=== PATIENT | female | born 1975 | race Native Hawaiian/Other Pacific Islander ===

== ENCOUNTER 2018-11-08 18:01 | Emergency (ER) | payer BC ==
[~2018-11-08] VITALS: Ht 160 cm; Wt 86.2 kg
[2018-11-08] MEDS ORDERED: ATEN25TA21 PO (18:46)
[2018-11-08] MEDS ORDERED: ZYPREXA ZYDI20 MG PO (18:46)
[2018-11-08] MEDS ORDERED: B-125000 MC1 SL (18:47)
[2018-11-08] MEDS ORDERED: MACROBID100 MG PO (18:47)
[2018-11-08] MEDS ORDERED: UNITH DIRECT50 MCG PO (18:48)
[2018-11-08] MEDS ORDERED: AMBIEN5 MG PO (18:48)
[2018-11-08 18:52] LABS: PLATELET COUNT 184 K/uL (152-353)
[2018-11-08 18:58] LABS: POTASSIUM 3.9 mmol/L (3.6-5.2)
[2018-11-08 20:45] VITALS: BP 139/73; TEMP 98.3
== END 2018-11-08 20:48 | disposition home or self-care (01) ==
LOC: ED 18:01
PROVIDERS: Emergency Medicine
DX: J11.1 Influenza due to unidentified influenza virus with other respiratory manifestations (principal); E86.0 Dehydration
CPT/HCPCS: 36415; 80053; 81000; 85027; 87502; 87651; 96374; 99284; J2405

== ENCOUNTER 2022-01-20 14:17 | Emergency (ER) | payer OTHER ==
[~2022-01-20] VITALS: Ht 160 cm; Wt 86.2 kg
[~2022-01-20 14:17] MED LIST: AMBIEN5 MG PO; ATEN25TA21 PO; B-125000 MC1 SL; MACROBID100 MG PO; UNITH DIRECT50 MCG PO; ZYPREXA ZYDI20 MG PO
[2022-01-20 15:17] LABS: POTASSIUM 4.7 mmol/L (3.6-5.2)
[2022-01-20 15:38] LABS: PLATELET COUNT 224 K/uL (152-353)
[2022-01-20 20:00] VITALS: BP 117/70; TEMP 97.8
== END 2022-01-20 20:00 | disposition home or self-care (01) ==
LOC: ED 14:17
PROVIDERS: Emergency Medicine
DX: R10.31 Right lower quadrant pain (principal); R10.32 Left lower quadrant pain; Z11.52 Encounter for screening for COVID-19
CPT/HCPCS: 36415; 80053; 85027; 87635; 96374; 96375; 99284; J1170; J1200; J2405; Q9963; U0003